=== PATIENT | female | born 1955 | race Two or more races ===

== ENCOUNTER 2018-10-06 07:09 | Day surgery (SDC) | payer BC ==
[~2018-10-06] VITALS: Ht 154.9 cm; Wt 68.9 kg
[2018-10-06] VITALS (8 sets, daily range): BP systolic 120–134; BP diastolic 65–81
[2018-10-06] MEDS ORDERED: ceFAZolin sod 1 GM in NS 55 ML IVPB ONE (08:00)
[2018-10-06] MEDS ORDERED: JANUMET 50-1,01 EACH ORAL (08:16)
[2018-10-06] MEDS ORDERED: CARVEDILOL3.125 MG ORAL (08:16)
[2018-10-06] MEDS ORDERED: LIVALO2 MG PO (08:16)
[2018-10-06] MEDS ORDERED: AZOR 5-20 MG T1 EACH ORAL (08:16)
[2018-10-06] MEDS ORDERED: Midazolam 2mg/2ml Inj ONE (08:49)
[2018-10-06] MEDS ORDERED: fentaNYL 100 mcg/2 mL IV ONE (08:49)
[2018-10-06] MEDS ORDERED: Dexamethasone 4mg/ml vial ONE (08:50)
[2018-10-06] MEDS ORDERED: Betadine 10% Oint 30gm TOPIC ONE (08:50)
[2018-10-06] MEDS ORDERED: Lidocaine 1% Plain 30 ml INJ ONE (08:50)
[2018-10-06] MEDS ORDERED: Bacitracin 50000 Units Vial ONE (08:50)
--- NOTE | 2018-10-06 08:55 | Pre-Procedure Note/Attestation ---
Pre-Procedure Note/Attestation Complete Prior to Procedure Planned Procedure: right Procedure Narrative: correction of hallux limitus / rigidus with cheilectomy right 1stMPJ / possible fusion with plate and screw Indications for Procedure Pre-Operative Diagnosis: hallux limitus /rigidus right foot Attestation I attest that I discussed the nature of the procedure; its benefits; risks and complications; and alternatives (and the risks and benefits of such alternatives ), prior to the procedure, with the patient (or the patient's legal sales representative [employer]). I attest that, if there was a reasonable possibility of needing a blood transfusion, the patient (or the patient's legal sales representative [employer]) was given the [place] [employer] standardized written summary, pursuant to the Ramesh Ulises Blood Safety Act ([place] Health and Safety Code # 1645, as amended). I attest that I re-evaluated the patient just prior to the surgery and that there has been no change in the patient's H&P, except as documented below: Byron Bose DPM Oct 06, 2018 08:55
[2018-10-06] MEDS: Bupivacaine 0.25% Inj 30ml INJ ONE ×2 (09:00→10:39)
--- NOTE | 2018-10-06 09:38 | Anethesia Preoperative Eval ---
Anesthesia Pre-op PMH/ROS General Date of Evaluation: Oct 06, 2018 Time of Evaluation: 08:46 Anesthesiologist: Garry ASA Score: ASA 2 Mallampati Score Class I : Soft palate, uvula, fauces, pillars visible Class II: Soft palate, uvula, fauces visible Class III: Soft palate, base of uvula visible Class IV: Only hard plate visible Mallampati Classification: Class II Surgeon: Juice Diagnosis: R foot pain Surgical Procedure: Revision of R bunionectomy Anesthesia History: none Family History: no anesthesia problems Allergies: Coded Allergies: NAPROXEN (Verified Allergy, Severe, anxiety, dizziness, 10/06/18) GETS SHAKY AND DIZZY PAPAYA (Verified Allergy, Severe, 10/06/18) FACIAL SWELLING Medications: see eMAR Patient NPO?: Yes Past Medical History Cardiovascular: Reports: HTN - stable on meds Pulmonary: Denies: asthma, COPD, KATHRYN, other Gastrointestinal/Genitourinary: Reports: GERD - mild; Denies: CRI, ESRD, other Neurologic/Psychiatric: Denies: dementia, CVA, depression/anxiety, TIA, other Endocrine: Reports: DM - poorly controlled; Denies: hypothyroidism, steroids, other HEENT: Denies: cataract (L), cataract (R), glaucoma, KLAMATH (L), KLAMATH (R), other Hematology/Immune: Denies: anemia, DVT, bleeding disorder, other Musculoskeletal/Integumentary: Reports: OA; Denies: RA, DJD, DDD, edema, other PMH Narrative: as above PSxH Narrative: , T&A, hysterectomy R foot bunion Anesthesia Pre-op Phys. Exam Physician Exam Last Vital Signs Date Time Temp Pulse Resp B/P (MAP) Pulse Ox O2 Delivery O2 Flow Rate FiO2 10/06/18 08:25 97.7 60 20 120/75 98 Room Air Constitutional: NAD Neurologic: CN 2-12 intact Cardiovascular: RRR, no M/R/G Respiratory: CTA Gastrointestinal: S/NT/ND Airway Exam Mallampati Score: Class II MO: full Neck: flexible ROM: full Teeth: missing Dentures: no upper, no lower Anesthesia Pre-op A/P Labs see chart Accucheck 136 at admission Studies Pre-op Studies: EKG - NSR Risk Assessment & Plan Assessment: ASA 2 Plan: MAC vs GA Status Change Before Surgery: No Pre-Antibiotics Drug: Anef 1gr. Given Within 1 Hr of Incision: Yes Time Given: 09:10 Manuelito Castañeda MD Oct 06, 2018 09:38
[2018-10-06] MEDS ORDERED: LR 1000ml 1,000 ML IVLG SCH (09:39)
[2018-10-06] MEDS ORDERED: DiphenhydrAMINE 50mg/ml Inj IVP PRN (09:45)
[2018-10-06] MEDS ORDERED: Hydromorphone 0.5mg/0.5ml inj IVP PRN (09:45)
[2018-10-06] MEDS ORDERED: Ketorolac 30mg Inj IV PRN (09:45)
--- NOTE | 2018-10-06 10:55 | Immediate Post-Op Evaluation ---
Immediate Post-Op Evalulation Immediate Post-Op Evalulation Procedure: Revision of R foot bunionectomy fusion Date of Evaluation: Oct 06, 2018 Time of Evaluation: 10:54 IV Fluids: 700 Blood Products: none Estimated Blood Loss: min Urinary Output: none Blood Pressure Systolic: 129 Blood Pressure Diastolic: 74 Pulse Rate: 68 Respiratory Rate: 20 O2 Sat by Pulse Oximetry: 98 Temperature (Fahrenheit): 97.8 Pain Score (1-10): 1 Nausea: No Vomiting: No Complications none Patient Status: awake, patent, none Hydration Status: adequate Manuelito Castañeda MD Oct 06, 2018 10:55
--- NOTE | 2018-10-06 11:03 | Brief Operative Note ---
Immediate Post Operative Note Operative Note Pre-op Diagnosis: hallux limitus /rigidus right foot Procedure: right foot 1st mpj cheilectomy Post-op Diagnosis: same Post-op Diagnosis: same as pre-op Surgeon: byron bose Anesthesiologist: evon Anesthesia: MAC Specimen: none Complications: none Condition: stable Fluids: 0 Estimated Blood Loss: none Drains: none Tourniquet time: 76 Implant(s) used?: No Byron Bose DPM Oct 06, 2018 11:03
--- NOTE | 2018-10-06 11:47 | Diagnostic Imaging Report ---
Indication: Foot Pain Comparison: None Findings: 3 views of the right foot were obtained. Erosive changes versus postsurgical changes involving the head of the first metatarsal demonstrated. Correlate clinically. If the appearance is due to underlying inflammatory arthritis or periarticular erosion, the erosion appears well-corticated or mature. More than likely this is due to previous bunionectomy. Correlate with the surgical history. There is a hallux valgus deformity present with narrowing of the first MTP joint. Several the interphalangeal joints are also narrowed. There is no fracture identified. Bones are osteopenic. IMPRESSION: Postsurgical changes in the area of the first MTP joint as described above likely accounting for the appearance. Possibility of a periarticular erosions not excluded. Please correlate clinically.
--- NOTE | 2018-10-06 11:48 | 48 Hour Post Anesthesia Eval ---
Post Anesthesia Evaluation Procedure: Revision of R foot bunionectomy fusion Date of Evaluation: Oct 06, 2018 Time of Evaluation: 11:46 Blood Pressure Systolic: 124 0: 71 Pulse Rate: 62 Respiratory Rate: 20 Temperature (Fahrenheit): 97.6 O2 Sat by Pulse Oximetry: 98 Airway: patent Nausea: No Vomiting: No Pain Intensity: 1 Hydration Status: adequate Cardiopulmonary Status: stable Mental Status/LOC: patient returned to baseline Follow-up Care/Observations: n/a Post-Anesthesia Complications: none Follow-up care needed: ready to discharge Manuelito Castañeda MD Oct 06, 2018 11:48
[2018-10-06] MEDS ORDERED: HYDROcodone/Acetamin 5/325 tab ORAL SCH (13:00)
--- NOTE | 2018-10-06 22:30 | Pre-op HX & Phy Repo 2 SIG ---
DATE OF ADMISSION: 10/06/2018 DATE OF OPERATION: 10/06/2018 HISTORY OF PRESENT ILLNESS: This is a 63-year-old female who presents with painful right first MPJ for the past few weeks. The pain and the discomfort have progressively gotten worsened during the past few months. The patient had a prior bunionectomy on this foot, not by me. The pain is mostly on the MPJ of the right. The patient has tried numerous conservative treatments including padding, offloading, shoe modification, cortisone injection, and decreased activity. The deformity and the pain has continuously increased. She reports no recent illnesses. No nausea, vomiting, chills, or shortness of breath. The patient is scheduled to have surgery today at [facility]. PAST MEDICAL HISTORY: The patient is type 2 diabetic with hypertension and dyslipidemia. PAST SURGICAL HISTORY: Right foot bunionectomy. ALLERGIES: Naproxen. MEDICATIONS: Livalo mg daily, John 20 mg oral tablet, Janumet mg orally, Coreg 3.125 mg orally. PHYSICAL EXAMINATION: VITAL SIGNS: Temperature is 98.7, pulse is 68, respiratory rate is 16, and blood pressure is 120/80. DERMATOLOGICAL: There is no open lesion. Mild hyperkeratotic tissue on the medial side of the MPJ. VASCULAR: Dorsalis pedis and posterior artery are palpable. No edema noticed. NEUROLOGICAL: Sensation is intact to touch, vibration, and heat. MUSCULOSKELETAL: Decreased motion at the first MPJ with pain. Bony prominence is noticed, dorsal and medial at the first MPJ. ASSESSMENT AND PLAN: This is a 63-year-old female with right foot hallux limitus/rigidus deformation. The patient has tried conservative measures, however, she still has pain daily. Recommended surgery as the next extensive management. The risks, benefits, and alternatives were discussed with the patient in detail who understands and would like to proceed with surgical intervention. All the patient's questions have been addressed and answered. The patient is scheduled to have surgery today on 10/06/2018 at [facility]. Byron Bose D.P.M. DR: JEANCARLOS JOB#: [id number] CC:
--- NOTE | 2018-10-06 23:15 | Operative Note - Dictated ---
DATE OF OPERATION: 10/06/2018 SURGEON: Byron Bose D.P.M. ANESTHESIOLOGIST: . PREOPERATIVE DIAGNOSIS: Right first MPJ hallux limitus status rigidus with degenerative joint disease. POSTOPERATIVE DIAGNOSIS: Right first MPJ hallux limitus status rigidus with degenerative joint disease. HEMOSTASIS: Pneumatic ankle tourniquet at 250 mmHg. TITLE OF THE SURGERY: Right first MPJ cheilectomy with reduction of bony spur and DJD at the first metatarsophalangeal joint, right foot. ESTIMATED BLOOD LOSS: Negligible. MATERIALS USED: A 2-0 Vicryl, 3-0 Vicryl, 4-0 Vicryl and the skin was closed using 4-0 nylon. INJECTABLES: A 20 mL of 0.25% Marcaine and 1% lidocaine in the ratio of 1:1 was injected into the right foot in terms of mailbox fashion at the first MPJ on the right. Intraoperatively, 8 mL of 0.25% Marcaine with 2 mL of dexamethasone was injected into the first MPJ on the right foot for postoperative pain management. PATHOLOGY: Bone resected from the medial dorsal lateral of the MPJ and osteophytes were sent for study and further study. DRESSING: The incision was covered using Xeroform, Betadine ointment, 4 x 4 Kerlix and Coban. COMPLICATION: None. CONDITION: Stable. DESCRIPTION OF THE PROCEDURE IN DETAIL: The patient was brought into the operating room and assisted on the operating table in the supine position. She was well padded to avoid any excessive pressure. The patient was then given 1 gram of Ancef before the start of surgery and a time-out was performed. A cotton-padded pneumatic ankle tourniquet was then applied to the patient's right ankle. Local anesthesia block was administered with a 20 mL of 1:1 mixture of 0.5% plain Marcaine and 1% plain lidocaine. The foot was prepped and draped in the usual aseptic manner. Attention was directed to the right foot. Using an Esmarch bandage, the foot was exsanguinated and the ankle tourniquet was inflated to 250 mmHg. At this time, a preplanned incision was made on the right foot contouring on the dorsum of the first MPJ just medial to the extensor hallucis and following a of her previous surgical scar. All vital signs were inspected and retracted from the field. All bleeders were cauterized and retracted. At this time, a linear capsulotomy was performed to expose the head of the metatarsophalangeal joint. Multiple osteophytes formation on the dorsum of the lateral and medial metatarsal head was noticed as well as the dorsal medial and lateral base of the proximal phalanx. The articular cartilage was noticed to be about 80% intact with defect on its medial plantar aspect of 0.4 mm in size. Using a sagittal saw, the medial, dorsal, and lateral exostosis of the osteophytes were resected and passed off the field. At this time, attention was directed to the base of the proximal phalanx where multiply degenerative changes of the osteophytes was noticed. The cartilage seems to be intact still. Using a sagittal saw, the area was shaved down to prevent any bone to bone contact with the head of the metatarsal joints. At this time, attention was directed to the plantar aspect, where sesamoid were inspected. There were minor adhesions between the sesamoid and the metatarsal head. The adhesions were loosened and a more mobile sesamoid was noticed. At this time, the joint was put through the range of motion. No crepitation was noticed and an improvement of about 75% of the motion that include 35-degree dorsiflexion and 60-degree plantar flexion was noticed with no tracking or crepitation. At this time, decision was made not to fuse the MPJ. A sufficient motion without crepitation or tracking was appreciated. At this time, using an isolating rasp, all the sharp edges on the dorsal, lateral, and medial aspects of the metatarsal phalangeal joint were smoothed out. Copious amount of saline was then utilized to clean the debris and the joints. It should be noticed that the defect on the medial plantar of the head of the metatarsal was addressed and using a 0.35 K-wire, multi fenestration was made as to bringing bone marrow for fibrosis and for possible deeper process. At this time, the capsule was closed using 2-0, deeper tissue were closed using 3-0 and 4-0 Vicryl, and subsequently, the skin was closed using 4-0 nylon. Upon closure, postoperative injection that included 8 mL of Marcaine 0.25 and 2 mL of dexamethasone was given in the area. The range of motion was once again checked, 35-degree dorsiflexion at about 60-degree plantar flexion without tracking or crepitation was noticed. This incision was then dressed using Xeroform, Betadine ointment, 4 x 4 and Chhaya and Coban. The incision was dressed. The ankle tourniquet was deflated and immediate hyperemia was noted to digits 1 through 5. At this time, the patient was transferred from the operating room to recovery room with all vital signs stable. She will be given crutches and postoperative shoe. She was given instruction before the surgery and will be given instruction after the surgery and follow-up appointment with Dr. Bose. There were no complications to the surgery. The patient tolerated the procedure well and she was discharged home once cleared by the anesthesiologist. Dilip PabonPEric DR: JADYN JOB#: [id number] CC:
== END 2018-10-06 14:00 | disposition home or self-care (01) ==
LOC: SUR 07:09
DX: M20.5X1 Other deformities of toe(s) (acquired), right foot (principal); E11.9 Type 2 diabetes mellitus without complications; I10 Essential (primary) hypertension; K21.9 Gastro-esophageal reflux disease without esophagitis; M19.90 Unspecified osteoarthritis, unspecified site; Z88.8 Allergy status to other drugs, medicaments and biological substances; Z90.710 Acquired absence of both cervix and uterus
CPT/HCPCS: 28289; 73630; 82962; J1100; J2001; J2250; J3010; J3490; 94003; 94150